=== PATIENT | male | born 1955 | race Caucasian/White ===

== ENCOUNTER → 2020-01-15 08:37 | Outpatient (POV) | payer OTHER, SELFPAY | PROVIDERS: Visit Provider Nurse Practitioner Family | DX: Z00.00 Encounter for general adult medical examination without abnormal findings (principal) ==

== ENCOUNTER → 2021-01-20 08:39 | Outpatient (POV) | payer MEDICARE, SELFPAY ==
[2021-01-20 10:28] LABS: Basophils # 0.1 K/mm3 (0-0.2); Basophils % 0.9 % (0.1-2.0); Eosinophils # 0.2 K/mm3 (0.0-0.4); Eosinophils % 3.1 % (0.1-12.0); Hematocrit 44.3 % (42.0-52.0); Hemoglobin 15.3 g/dL (14.1-18.0); Lymphocytes # 1.4 K/mm3 (0.7-4.5); Lymphocytes % 24.4 % (10-50); Mean Corpuscular HGB Conc 34.5 g/dL (31.8-35.4); Mean Corpuscular Hemoglobin 30.9 pg (27.0-31.2); Mean Corpuscular Volume 89.6 fl (80-94); Monocytes # 0.4 K/mm3 (0.1-1.0); Monocytes % 6.2 % (1.7-9.3); Neutrophils # 3.7 K/mm3 (1.8-7.8); Neutrophils % 65.5 % (37.0-80.0); Platelet Count 176 K/mm3 (142-424); Red Blood Count 4.95 M/mm3 (4.60-6.20); Red Cell Distribution Width 14.3 % (11.5-17.5); White Blood Count 5.7 K/mm3 (4.8-10.8)
[2021-01-20 11:01] LABS: Alanine Aminotransferase 45 U/L (12-78); Albumin Level 4.7 g/dl (3.5-5.0); Alkaline Phosphatase 99 U/L (38-126); Anion Gap 14.4 mEq/L (5-15); Aspartate Amino Transferase 36 U/L (17-59); Bilirubin,Total 0.5 mg/dl (0.2-1.3); Blood Urea Nitrogen 17 mg/dl (9-20); Calcium 9.6 mg/dl (8.4-10.2); Carbon Dioxide 29 mmol/L (22.0-30.0); Chloride 100 mmol/L (98-107); Estimated Glomerular Filt Rate 97 ml/min (>60); GFR (African American) 117 ML/MIN (>60); Globulin 2.4 g/dL (1.3-3.2); Glucose 176 mg/dl (74-100); Potassium 4.4 mmoL/L (3.5-5.1); Sodium 139 mmol/L (136-145); Total Protein,Serum 7.1 g/dl (6.3-8.2)
== END ==
PROVIDERS: Visit Provider Nurse Practitioner Family
DX: K75.81 Nonalcoholic steatohepatitis (NASH) (principal); K21.9 Gastro-esophageal reflux disease without esophagitis; R14.0 Abdominal distension (gaseous); F11.90 Opioid use, unspecified, uncomplicated; R15.0 Incomplete defecation; K76.9 Liver disease, unspecified
CPT/HCPCS: 36415; 80053; 85025

== ENCOUNTER → 2021-03-21 07:12 | Outpatient (CLI) | payer MEDICARE, SELFPAY | PROVIDERS: Visit Provider Internal Medicine Gastroenterology | DX: Z01.812 Encounter for preprocedural laboratory examination (principal); Z20.822 Contact with and (suspected) exposure to COVID-19; Z12.11 Encounter for screening for malignant neoplasm of colon | CPT/HCPCS: C9803; U0003; U0005 ==

== ENCOUNTER 2021-03-24 07:37 | Day surgery (SDC) | payer MEDICARE, SELFPAY ==
[2021-03-19 11:23] VITALS: BMI 38.9
[2021-03-24 07:56] VITALS: BP 148/79; PULSE 69; RESP 18; TEMP 36.4; O2SAT 95
[2021-03-24 08:08] LABS: POC Glucose,Bedside 152 (70-110)
--- NOTE | 2021-03-24 09:00 | P.PN_ITS ---
[facility] Anesthesia Checklist - Patient Identification Patient Identification: Arm Band - Structural Data Admitted From: Home Planned Operative Procedure/s: Colonoscopy Consent for Planned Operative Procedure(s) Verified: Yes - NPO Status Verified Time NPO: 00:00 - Airway Assessment C-Spine Mobility Assessed: Yes TMJ Mobility Assessed: Yes Dentition: Dentures-good fit - Neurological Assessment Level of Consciousness: Awake Hx Seizures: No Numbness or tingling in extremities: No - Anesthesia Plan Anesthesia Risk discussed: Yes Anesthesia Plan: Verified ASA Class: III Anesthesia Type: MAC [facility] History I have reviewed the patient's past medical history: Yes Medical History: Reports:: Cancer (TESTICULAR), Diabetes Mellitus Type 2, Hyperlipidemia, Hypertension, Internal Pacemaker Denies:: Diabetes Mellitus Type 1, MRSA, Seizures *Have you ever received a pneumonia vaccine?: Yes *Have you received a flu vaccine this season?: Yes Anesthesia experience/problems:: None Laterality Cases: Bilateral: Arthroscopy Knee Other Surgeries: Yes: Pacemaker Amputation: No Fractures: No - *Social History Last grade of school completed: High school graduate Smoking Status: Never smoker Alcohol Intake: never Substance Use Type: denies use *Occupational Status:: retired Housing: house Household Members: spouse *Travel in the last 8 weeks: None Family Hx:: Cancer, Heart Attack, Hypertension, Stroke
[2021-03-24 09:25] VITALS: O2SAT 99
--- NOTE | 2021-03-24 10:03 | HMH.PROC ---
[facility] Procedure Note Procedure Note:: Colonoscopy Procedure Report: Colonoscopy with cold snare polypectomy and Endo Clip placement Endoscopist: Myron Ace II, MD Referring physician: VANNESSA Kelly Date of Procedure: March 24, 2021 Equipment: Olympus 190 variable stiffness pediatric colonoscope Sedation: MAC sedation Indication: Mr. Haddad is a 65-year-old gentleman who is here for surveillance colonoscopy secondary to a personal history of adenomatous colon polyps. His last colonoscopy was 2013 (Dr. Amador in [place]) and polyps were removed. He reports no rectal bleeding, abdominal pain, weight loss or change in bowel habits. He does have some incomplete bowel evacuation at times which is unchanged. He reports no family history of colon cancer. He did he does have a history of STACK and chronic liver disease. Procedure: Prior to the procedure, a history and physical exam was performed, and patient's medications and allergies were reviewed. The risks, benefits and alternatives of the sedation and procedure were discussed with the patient. All questions were answered and informed consent was obtained. The patient was brought to the procedure room. Patient identification and proposed procedure were verified by the physician and the nurse. The patient was placed in a left lateral decubitus position and the scope was passed under direct vision. Throughout the procedure, the patient's blood pressure, pulse, and oxygen saturations were monitored continuously. The colonoscopy was accomplished without difficulty. The patient tolerated the procedure well. Findings: On digital rectal examination there was normal rectal tone. There were no external hemorrhoids. The prostate was 2-3+, smooth, soft, symmetric without nodules. The colonoscope was introduced through the anal canal to the rectum and advanced to the cecum. The ileocecal valve and appendiceal orifice were identified. The scope was advanced a short distance into the ileum which appeared grossly normal. The scope was then withdrawn into the colon. There were a total of 12 colon polyps (ascending x3 (3, 4 and 5 mm), transverse x1 (4 mm), descending x2 (4 and 6 mm) and sigmoid x6 (4, 4, 4, 6, 7 and 9 mm)). All of these polyps were removed via cold snare polypectomy. The largest polyp did have some heme at the polypectomy site so a single Endo Clip was placed with complete hemostasis. The remaining cecum, ascending and transverse colon and mucosa were grossly normal. There were scattered diverticuli throughout the descending and sigmoid colon (LEFT colon). The rectum itself was normal. Upon retroflexion within the rectum there were grade 2 internal hemorrhoids. The preparation was excellent throughout with [place] Preparation Score of 9. The cecal time was 17 minutes. Impression: 1. Colonic polyps x12 2. Left-sided diverticulosis 3. Grade 2 internal hemorrhoids Plan: I will follow up the polyp pathology and recommend repeat colonoscopy again in 2 years based upon the number and size of adenomatous polyps. I would encourage a fiber bowel regimen on a long-term daily maintenance basis.
[2021-03-24 10:07] VITALS: BP 123/49; PULSE 69; RESP 18; TEMP 36.6; O2SAT 90
[2021-03-24 10:17] VITALS: BP 103/51; PULSE 66; RESP 18; O2SAT 89
[2021-03-24 10:30] VITALS: BP 123/68; PULSE 65; RESP 18; O2SAT 96
[2021-03-24 10:46] VITALS: BP 138/71; PULSE 60; RESP 18; O2SAT 97
== END 2021-03-24 10:51 | disposition home or self-care (01) ==
LOC: OUTP 07:41
PROVIDERS: PCP Nurse Practitioner Family; Visit Provider Internal Medicine Gastroenterology
PROC: 0DJD8ZZ Inspection of Lower Intestinal Tract, Via Natural or Artificial Opening Endoscopic (ICD-10-PCS; CPT 45378; principal; 2021-03-24 09:00)
DX: Z86.010 Personal history of colon polyps (principal); Z12.11 Encounter for screening for malignant neoplasm of colon; Z87.19 Personal history of other diseases of the digestive system; K63.5 Polyp of colon; K57.32 Diverticulitis of large intestine without perforation or abscess without bleeding; K64.1 Second degree hemorrhoids; E11.9 Type 2 diabetes mellitus without complications; E78.5 Hyperlipidemia, unspecified; I10 Essential (primary) hypertension; Z95.0 Presence of cardiac pacemaker; Z85.47 Personal history of malignant neoplasm of testis; Z82.3 Family history of stroke
CPT/HCPCS: 45385; 82962; 88305; J2704

== ENCOUNTER 2024-01-11 14:55 | Outpatient (CLI) | payer MEDICARE, SELFPAY ==
--- NOTE | 2024-01-11 14:58 | CA_ITS ---
APPROVED REPORT EXAM: Comprehensive 2D, Doppler, and color-flow Echocardiogram Licensed Physical Therapy Assistant: Jie Silva RCS, RVS Ht: 6 ft 1 in Wt: 302lbs BSA: 2.56 BP: 131/71 mmHg Indications: Pre-pacer battery change, Edema, Fatigue 2D Dimensions LVDs 3.07 cm LVEF (Morfin's) 55.70 % Left Atrium 4.23 cm LV Volume 92.40 mL LA Volume 73.40 mL LA Volume Index 27.90 mL/m2 (M/F) 16-34 EF AP4 59.40 % EF AP2 43.0 % EF BP 55.7 % GL Strain -14.8 % M-Mode Dimensions RVDd 2.56 cm (0.9-2.6) LA Diam 4.24 cm (1.9-4.0) LVDd 5.70 cm (3.5-5.7) LVDs 3.98 cm (3.5-5.7) IVSd 1.43 cm (0.6-1.1) PWd 1.48 cm (0.6-1.1) EF (Teich) 56.80% EPSs 0.54 cm FS 30.20% EDV (Teich) 160.00 mL TAPSE 2.91 (<1.7) ESV (Teich) 69.20 mL LV Diastology E Decel Time 210 (160-240 msec) E/A Ratio 0.88 MED A' 11.80 cm/s LAT A' 13.00 cm/s Aortic Valve SHEA Index 0.82 cm2/m2 AoV Peak Romero. 195.0 (50-130 cm/s) AO Peak GR. 15.10 mmHg AO Mean GR. 7.40 (<5 mmHg) AO VTI 31.5 (18-25 cm) SHEA (VTI) 2.16 (2.5-4.5 cm2) Mitral Valve MV E Max Romero. 80.0 (40-130 cm/s) MV A Velocity 91.0 (40-130 cm/s) E/A Ratio 0.88 MV PHT 62.0 ms Pulmonary Valve PV Peak Velocity 120.0 (50-150 cm/s) Tricuspid Valve TR P. Velocity 282.00 cm/s RAP Estimate 10.00 mmHg RVSP 41.90 mmHg Left Ventricle The left ventricle is normal size. The left ventricular systolic function is normal. The left ventricular ejection fraction is within the normal range. Please LV wall thickness. There is normal LV segmental wall motion. Transmitral Doppler flow pattern suggests impaired LV relaxation. LVEF is 60%. Right Ventricle The right ventricle is normal size. The right ventricular systolic function is normal. Atria The left atrium size is normal. The right atrium size is normal. There is no Doppler evidence of interatrial shunt. Aortic Valve The aortic valve is mildly thickened. Aortic sclerosis, but no evidence of aortic stenosis. No aortic regurgitation is present. Mitral Valve The mitral valve is normal in structure. No evidence of mitral valve stenosis. Trace mitral regurgitation. Tricuspid Valve The tricuspid valve leaflets are thin and pliable. Trace tricuspid regurgitation. There is insufficient TR jet to estimate RVSP. Pulmonic Valve The pulmonary valve is normal in structure. Trace pulmonic regurgitation. Great Vessels The aortic root is normal in size. The ascending aorta is not well-visualized. IVC is normal in size and collapses >50% with inspiration. Pericardium There is no pericardial effusion. Other Information Study Quality: Fair Conclusion Normal biventricular systolic function. No significant valvular stenosis or regurgitation. Electronically signed by : Neda Mendosa MD 01/15/2024 23:05:30
== END 2024-01-11 23:59 | disposition home or self-care (01) ==
LOC: RT 14:58
PROVIDERS: PCP Nurse Practitioner Family; Visit Provider Physician Assistant
DX: R94.31 Abnormal electrocardiogram [ECG] [EKG] (principal); R06.02 Shortness of breath; R00.1 Bradycardia, unspecified; Z45.010 Encounter for checking and testing of cardiac pacemaker pulse generator [battery]; R53.83 Other fatigue; R60.9 Edema, unspecified
CPT/HCPCS: 93306

== ENCOUNTER 2024-02-02 09:43 | Day surgery (SDC) | payer MEDICARE, SELFPAY ==
[2024-02-02] VITALS (7 sets, daily range): BP systolic 133–168; BP diastolic 86–99; PULSE 71–82; RESP 16–18; TEMP 36.8; O2SAT 94–98; BMI 39.8
--- NOTE | 2024-02-02 07:09 | IR_ITS ---
APPROVED REPORT Patient Location: Outpatient Office Clerk Routine: NADIA Ivy RT (R) PROCEDURES 1. Pocket Revision 2. Removal of old Pacemaker 3. Implant of Permanent Pacemaker INDICATION End of battery life Informed consent was obtained prior to the procedure. COMPLICATIONS None Estimated Blood Loss: Less than 10 ML TECHNIQUE 1% lidocaine with epinephrine used to anesthetize the left anterior aspect of the chest. Scalpel was used to make the initial cutaneous incision and then used to dissect down to the existing pacemaker generator. The generator was removed from the existing pocket. Digital manipulation was required along with intermittent usage of scalpel in order to revise the pocket. The leads were removed from the old generator. The new generator was screwed to the existing leads and secured into place. Electronic interrogation proved acceptable thresholds and voltage within the lead. Antibiotics were used to flush the pocket and the pacemaker was secured using 3-0 silk into the newly revised pocket. Monocryl was used to close the subcutaneous tissue and then michel were placed on the cutaneous area in order to approximate the incision. Patient was transferred to the postop holding area in stable condition. INTERROGATION Explanted Generator Model number: Izooble, [id number] Explanted Generator Serial number: [id number] Implanted Generator Model number: [employer] [facility], [id number] Implnated Generator Serial number: [id number] Atrial lead model number: 5076/46cm Atrial lead serial number: [id number] P-wave: 5.0mV Impedance: 450 ohms Threshold: 0.75V@0.4ms Right Ventricular lead model number: 5076/52cm Right Ventricular lead serial number: [id number] R-wave: 10mV Impedance: 460 ohms Threshold: 1.0V@0.4ms Pacing Parameters: Mode: DDDR Base/Max Track:60 ppm / 130 ppm No diaphragmatic stimulation at 10 volts. IMPRESSION 1. Successful Pocket Revision 2. Successful Removal of old Pacemaker 3. Successful Implant of Permanent Pacemaker PLAN 1. Postop wound care. Electronically signed by : Werner Jimenez MD 02/03/2024 08:37:29
[2024-02-02 11:28] LABS: Chloride 101 mmol/L (98-107); Potassium 4.1 mmoL/L (3.5-5.1); Sodium 136 mmol/L (136-145)
[2024-02-02 11:31] LABS: Blood Urea Nitrogen 23 mg/dl (9-20); Creatinine Clearance Estimated 135 mL/min (50-200); Estimated Glomerular Filt Rate 84 ml/min (>60); GFR (African American) 101 ML/MIN (>60)
[2024-02-02 11:32] LABS: Anion Gap 11.1 mEq/L (5-15); Basophils # 0.1 K/mm3 (0-0.2); Basophils % 1.2 % (0.1-2.0); Calcium 10.1 mg/dl (8.4-10.2); Carbon Dioxide 28 mmol/L (22.0-30.0); Eosinophils # 0.2 K/mm3 (0.0-0.4); Eosinophils % 3.2 % (0.1-12.0); Glucose 152 mg/dl (74-100); Hematocrit 46.6 % (42.0-52.0); Hemoglobin 15.9 g/dL (14.1-18.0); Lymphocytes # 1.5 K/mm3 (0.7-4.5); Lymphocytes % 25.5 % (10-50); Mean Corpuscular HGB Conc 34.2 g/dL (31.8-35.4); Mean Corpuscular Hemoglobin 32.6 pg (27.0-31.2); Mean Corpuscular Volume 95.3 fl (80-94); Mean Platelet Volume 9.3 fl (7.4-10.4); Monocytes # 0.3 K/mm3 (0.1-1.0); Monocytes % 5.2 % (1.7-9.3); Neutrophils # 3.7 K/mm3 (1.8-7.8); Neutrophils % 64.8 % (37.0-80.0); Platelet Count 201 K/mm3 (142-424); Red Blood Count 4.89 M/mm3 (4.60-6.20); Red Cell Distribution Width 14.7 % (11.5-17.5); White Blood Count 5.7 K/mm3 (4.8-10.8)
--- NOTE | 2024-02-02 11:47 | EXP.ANES.CKL ---
[facility] Disclaimer: The information contained in this section may have been updated after the patient was seen, as this information can be updated by other users. Medical History (Updated 12/30/23 @ 16:01 by Behzad Walker RN) Bradycardia Pacemaker at end of battery life Social History Smoking Status: Never smoker second hand exposure: No alcohol intake: never substance use type: denies use current occupational status: retired Travel in the last 8 weeks: None household members: spouse housing: house current occupational exposures/hazards: No caffeine: Yes [facility] Anesthesia Checklist Patient Identification Patient Identification: Arm Band Structural Data Admitted From: Home Planned Operative Procedure/s: Generator Change Consent for Planned Operative Procedure(s) Verified: Yes Verified Documents: Surgical Consent and History and Physical NPO Status Verified Time NPO: 00:00 Additional verifications Anesthesia Reactions: No Blood Transfusion Reaction: No Airway Assessment Mallampati Score:: Class II C-Spine Mobility Assessed: Yes TMJ Mobility Assessed: Yes Dentition: Edentulous Neurological Assessment Level of Consciousness: Awake, Alert and Appropriate Anesthesia Plan Anesthesia Risk discussed: Yes Anesthesia Plan: Verified ASA Class: III Anesthesia Type: MAC
[2024-02-02] MEDS: CEFAZOLIN SODIUM 1 GM in 0.9 % SODIUM CHLORIDE 50 ML IV (14:57)
[2024-02-02] MEDS: LIDOCAINE 1% W/EPI 1:100,000 20ML VIAL 20 ML SQ (15:21)
[2024-02-02] MEDS: CEFAZOLIN 1GM VIAL 1 GM TP (15:21)
== END 2024-02-02 15:50 | disposition home or self-care (01) ==
PROVIDERS: PCP Nurse Practitioner Family; Visit Provider Internal Medicine
DX: Z45.010 Encounter for checking and testing of cardiac pacemaker pulse generator [battery] (principal); Z79.899 Other long term (current) drug therapy; Z79.85 Long-term (current) use of injectable non-insulin antidiabetic drugs; J44.9 Chronic obstructive pulmonary disease, unspecified; E55.9 Vitamin D deficiency, unspecified; E11.9 Type 2 diabetes mellitus without complications
CPT/HCPCS: 33228; 80048; 85025; C1785; J2250; J2704